=== PATIENT | male | born 2005 | race Caucasian/White ===

== ENCOUNTER 2023-09-01 11:08 | Emergency (ER) | payer OTHER, SELFPAY ==
[2023-09-01 11:12] VITALS: BP 144/75; PULSE 85; RESP 16; TEMP 36.4; O2SAT 96; BMI 27.3
--- NOTE | 2023-09-01 11:45 | ED_ITS ---
HPI - Extremity Injury (Lower) General Chief Complaint: Extremity Pain/Injury, Lower Stated Complaint: poss infection in right leg Time Seen by Provider: 09/01/23 11:27 History of Present Illness HPI Narrative: This 18-year-old male comes in with an injury to his right leg that is worsened over the past couple days. 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 He has a road rash on the upper aspect of his leg. Yesterday he was swimming in [place] and now he has erythema extending distally almost down to his ankle. He does not report any fever. Related Data Previous Rx's ?Medication ?Instructions ?Recorded cephalexin 500 mg capsule 500 mg PO TID 7 days #21 caps 09/01/23 doxycycline hyclate 100 mg capsule 100 mg PO BID 7 days #14 caps 09/01/23 Allergies Allergy/AdvReac Type Severity Reaction Status Date / Time No Known Drug Allergies Allergy Verified 09/01/23 11:15 Review of Systems Status of ROS: Reports: 10 or more systems reviewed and unremarkable except as noted in History and below Narrative: Constitutional: No fevers, no weight gain or loss. Eyes: No discharge. No vision changes. HENT: No congestion, no sore throat, no ear pain. Cardiovascular: No chest pain, no palpitations. Respiratory: No shortness of breath, no wheezes, no cough. Gastrointestinal: No abdominal pain, no vomiting, no diarrhea. Genitourinary: No dysuria, no hematuria. Musculoskeletal: Normal range of motion. Right lower extremity injury as described above. Skin: No rashes, no pruritis. Neurological: No dizziness, weakness, sensory change, speech change. Endo/Heme/Allergies: No bruising or bleeding. No polydipsia. Pysch: no suicidality, no anxiety, no insomnia. All other systems reviewed and are negative. Exam Narrative: Exam Narrative: Constitutional: Well-developed, well-nourished, no acute distress. HEENT: Normocephalic, atraumatic. Neck: Normal range of motion. Nontender. Supple. Heart: Regular. No murmurs. Normal rate. Intact distal pulses. Lungs: Clear to auscultation. No chest discomfort. No wheezes, rhonchi, or rales. Abdomen: Normal bowel sounds. Nontender. No rebound tenderness. Genitalia: Deferred. Back: No midline tenderness. Normal range of motion. Extremities: Normal range of motion. No injury. Skin: No rash. Warm. No erythema or pallor. Road rash abrasion on the lateral aspect of the right lower leg about 8 cm in diameter. This is not a full- thickness wound. There is erythema and mild swelling with increased warmth typical of infection that extends down the lateral aspect of his leg to his ankle. Neurologic: No altered sensation. No weakness. Alert and oriented. Psychiatric: No suicidality. No anxiety or depression. No insomnia. Nursing notes and vitals signs are reviewed. Const: Vital Signs, click to edit/add: Vital Signs - 24 hr 09/01/23 11:12 Temperature 97.5 F L Pulse Rate [Pulse Oximeter] 85 Respiratory Rate 16 Blood Pressure [Ri ght Upper Arm] 144/75 H Pulse Oximetry 96 Oxygen Delivery Me thod Room Air Course Vital Signs Vital signs: Initial Vital Signs Temperature 97.5 F L 09/01/23 11:12 Temperature Source Temporal Artery Scan 09/01/23 11:12 Pulse Rate 85 09/01/23 11:12 Respiratory Rate 16 09/01/23 11:12 Blood Pressure 144/75 H 09/01/23 11:12 Blood Pressure Mean 98 09/01/23 11:12 Blood Pressure Position Sitting 09/01/23 11:12 Pulse Oximetry 96 09/01/23 11:12 Oxygen Delivery Method Room Air 09/01/23 11:12 Vital Signs Temperature 97.5 F L 09/01/23 11:12 Pulse Rate 85 09/01/23 11:12 Respiratory Rate 16 09/01/23 11:12 Blood Pressure 144/75 H 09/01/23 11:12 Pulse Oximetry 96 09/01/23 11:12 Oxygen Delivery Method Room Air 09/01/23 11:12 Temperature 97.5 F L 09/01/23 11:12 Pulse Rate 85 09/01/23 11:12 Respiratory Rate 16 09/01/23 11:12 Blood Pressure 144/75 H 09/01/23 11:12 Pulse Oximetry 96 09/01/23 11:12 Oxygen Delivery Method Room Air 09/01/23 11:12 MDM - Extremity Injury (Lower) MDM Narrative Medical decision making narrative: This patient has a cellulitis in the right leg that is complicated with exposure to a [place] yesterday. It was after he was in the [place] that he developed these symptoms. This poses a significant increased risk for other pathogens. I did consult up-to-date and it is recommended that he take Keflex and a fluoroquinolone for this kind of scenario. I did explain that fluoroquinolones have a small risk for tendinopathy or tendon rupture. He is unwilling to take on that risk and prefers an alternative treatment. He did receive an intramuscular injection of Rocephin 1 g and prescriptions for Keflex and doxycycline. I did advise him regarding signs and symptoms that would indicate a need for return and re-evaluation. Discharge Plan Discharge Clinical Impression: Cellulitis Patient Disposition: Home, Self-Care Condition: Stable Additional Instructions: Take medication as prescribed. Increase activity as tolerated. Follow up with MD or return if symptoms are persistent or worsening. Prescriptions: New doxycycline hyclate 100 mg capsule 100 mg PO BID 7 Days Qty: 14 0RF cephalexin 500 mg capsule 500 mg PO TID 7 Days Qty: 21 0RF Stand Alone Forms: [employer] Info Instructions
[2023-09-01] MEDS: cefTRIAXone 1 GM VIAL IM (12:03)
[2023-09-01] MEDS: LIDOCAINE 1% 5 ml (pf) 5 ML VIAL 2.1 ML IM (12:04)
== END 2023-09-01 12:10 | disposition home or self-care (01) ==
LOC: ED 12:11
PROVIDERS: Emergency Provider Emergency Medicine Emergency Medical Services
DX: L03.115 Cellulitis of right lower limb (principal)
CPT/HCPCS: 96372; 99283; 99284; J0696